=== PATIENT | male | born 1950 | race Hispanic/Latino ===

== ENCOUNTER 2018-05-02 10:56 | Outpatient (CLI) | payer MEDICARE ==
[2018-05-02 11:43] LABS: Blood Urea Nitrogen 13 mg/dL (9-20)
--- NOTE | 2018-05-02 20:33 | Cat Scan Report ---
FINAL REPORT PROCEDURE: CT CHEST W CON TECHNIQUE: Computerized axial tomography of the chest was performed during the IV injection of iodinated nonionic contrast. HISTORY: LUNG CANCER COMPARISON: No prior studies are available for comparison. TECHNICAL QUALITY: Satisfactory. FINDINGS: Heart and pericardium: No pericardial effusion or thickening. Thoracic aorta: Atherosclerotic calcification of the aorta. Pulmonary vasculature: No filling defects are identified. Lymph nodes: 11 millimeter right paratracheal lymph node is present. Lungs: There are postsurgical changes of the right lung. There are emphysematous changes in bilateral lung apices. No infiltrate or focal pulmonary lesion is identified. Airways are patent. Pleural space: No effusion, thickening, or pneumothorax. Musculoskeletal structures: No significant abnormality. Upper abdominal structures: There is a 12 millimeter circumscribed lesion in the right hepatic lobe, which may be a cyst. IMPRESSION: Right lung postsurgical changes and emphysema. No acute pulmonary abnormalities are seen There is a 12 millimeter circumscribed lesion in the right hepatic lobe, which may be a cyst. Follow-up could be obtained to ensure stability
== END 2018-05-02 10:57 | disposition home or self-care (01) ==
LOC: CT 10:56
PROVIDERS: ATTEND Internal Medicine Critical Care Medicine
DX: C34.90 Malignant neoplasm of unspecified part of unspecified bronchus or lung (principal); J43.9 Emphysema, unspecified; Z98.890 Other specified postprocedural states
CPT/HCPCS: 36415; 71260; 82565; 84520; Q9967

== ENCOUNTER 2019-03-31 10:38 | Day surgery (SDC) | payer MEDICARE ==
[2019-03-31] MEDS ORDERED: NACL 0.9% 1000 ML 1,000 ML IV SCH (12:00)
[2019-03-31] MEDS ORDERED: XYLOCAINE MPF 2% ONE (12:30)
--- NOTE | 2019-03-31 12:38 | Anesthesia Day of Surgery ---
Anesthesia Day of Surgery - Day of Surgery Patient Examined: Yes Patient H&P Reviewed: Yes Patient is NPO: Yes
--- NOTE | 2019-03-31 12:38 | Anesthesia Consultation ---
Anesthesia Consult and Med Hx Date of service: 03/31/19 - Airway Anesthetic Teeth Evaluation: Good ROM Head & Neck: Adequate Mental/Hyoid Distance: Adequate Mallampati Class: Class III Intubation Access Assessment: Possibly Difficult - Pulmonary Exam CTA: Yes - Cardiac Exam Cardiac Exam: RRR - Pre-Operative Health Status ASA Pre-Surgery Classification: ASA3 Proposed Anesthetic Plan: MAC - Pulmonary Hx Smoking: Yes Hx Respiratory Symptoms: No Hx Sleep Apnea: Yes - Cardiovascular System Hx Hypertension: Yes (took antihypertensives today) Hx Heart Attack/AMI: No Hx Percutaneous Transluminal Coronary Angioplasty (PTCA): No - Central Nervous System CVA: No - Endocrine Hx Renal Disease: No (hx nephrectomy) Hx Liver Disease: No Hx Non-Insulin Dependent Diabetes: No Hx Thyroid Disease: No - Other Systems Hx Cancer: Yes (hx lung Ca s/p RUL resection) - Additional Comments Anesthesia Medical History Comments: No hx anesthetic complications.
[2019-03-31] MEDS ORDERED: DIPRIVAN 10 MG/ML IV ONE ×2 (12:47)
[2019-03-31] MEDS ORDERED: WATER FOR IRRIG STERILE IR ONE (12:49)
--- NOTE | 2019-03-31 13:20 | Procedure Note ---
Date of procedure: 03/31/19 Pre-op diagnosis: H/O Colon Polyps Post-op diagnosis: other (Multiple,Colon Polyps (Descending Colon and Recto- Sigmoid)/Moderate,Left Colon Diverticular/ Mild to Moderate Internal Hemorrhoid) Procedure: Colonoscopy with Cold Snare Polypectomy and Cold Biopsy [place] [facility] [place]: MARI BECK Estimated blood loss: minimal Pathology: list Specimen disposition: to lab Condition: stable Disposition: same day (Avoid aspirin and NSAID and anticoagulants for 4 days; otherwise resume home medication. Encourage fiber intake and follow up in 1 to 2 weeks ([phone]).)
[2019-03-31 14:10] VITALS: BP 116/87
--- NOTE | 2019-03-31 14:33 | Operative Report ---
PROCEDURE: Colonoscopy. INDICATIONS: This is a 69-year-old white male with a prior history of right lung cancer for which he has had surgery done. Also has a history of colon polyps. Last colonoscopy was done a little over a year ago, 1-1/2 year ago. He has a history of multiple colon polyps. Repeat colonoscopy was done to make sure there was not any recurrence of any polyps. DESCRIPTION OF PROCEDURE: The procedure was done after getting informed consent with MAC anesthesia. Initial rectal exam was unremarkable. Instrument was passed through the rectum onto the cecum, which was identified with ileocecal valve and appendiceal orifice. Visualization was fair. There was a lot of fluid in the colon that was suctioned out. The cecum, ascending colon and most of the transverse colon showed normal mucosa. There were 2 polyps noted in the proximal descending colon, one was removed by snare polypectomy without application of heat and the other by cold biopsy. There was moderate left colon diverticular disease noted and multiple small possibly hyperplastic polyps noted in the rectosigmoid area that were removed by cold biopsy. The rectum showed [id number] internal hemorrhoids on the retroverted view. There was minimal bleeding from the biopsy sites and no complications associated with the procedure. ASSESSMENT: History of colon polyps noted in the descending colon and the rectosigmoid area, left colon diverticular disease, [id number]-yqvqsvbi internal hemorrhoid. The patient had minimal bleeding and will be asked to avoid aspirin and aspirin-related products for the next few days and follow up in the office in 1-2 weeks' time. The patient may resume other medications besides aspirin, aspirin-related and anticoagulants, which should be avoided for the next 4 days. The procedure was done in the GI lab with assistance of the GI lab team, which included URI, Chencho Castaneda and assistance of anesthesia. The patient will also be advised strongly to refrain from smoking. JOB# [id number] JAGDISH/SATHYA
--- NOTE | 2019-03-31 14:44 | History and Physical Report ---
HISTORY OF PRESENT ILLNESS: A 67-year-old white male with a prior history of right lung cancer for which he has had surgery. He also has a prior history of esophageal and gastric ulcers and has had a history of multiple colon polyps of the tubular adenoma type. He has come for a repeat colonoscopy to be done. SOCIAL HISTORY: He does smoke, but states he smokes far less than he had been in the past. On occasion drinks alcohol. No cardiac issues. No flu shots. ALLERGIES: He has no known allergies. PHYSICAL EXAMINATION: GENERAL: He is afebrile. VITAL SIGNS: Blood pressure 131/85, pulse is 63, weight is 216-1/2 pounds. HEENT: Shows no JVD. LUNGS: Clear to auscultation. Lungs do show reduced breath sounds on the right side secondary to prior history of lung surgery. CARDIOVASCULAR: Normal. ABDOMEN: Soft. Bowel sounds present. NEUROLOGIC: He is alert and oriented. ASSESSMENT: History of multiple colon polyps of the tubular adenoma type, history of gastric and esophageal ulcers, prior history of right lung cancer status post-surgery. PLAN: To do a colonoscopy at [facility] on 03/31/2019. The patient received Clenpiq to get his prep that was a sample given from the office. JOB# [id number] JAGDISH/SATHYA
== END 2019-03-31 10:39 | disposition home or self-care (01) ==
LOC: GIO 10:38
DX: Z09 Encounter for follow-up examination after completed treatment for conditions other than malignant neoplasm (principal); D12.7 Benign neoplasm of rectosigmoid junction; D12.4 Benign neoplasm of descending colon; E78.00 Pure hypercholesterolemia, unspecified; I10 Essential (primary) hypertension; G47.30 Sleep apnea, unspecified; Z86.010 Personal history of colon polyps; Z79.899 Other long term (current) drug therapy; Z87.891 Personal history of nicotine dependence; Z85.118 Personal history of other malignant neoplasm of bronchus and lung; Z90.5 Acquired absence of kidney; Z98.890 Other specified postprocedural states
CPT/HCPCS: 45380; 45385; 88305; J2704; J7030

== ENCOUNTER 2020-04-26 08:19 | Day surgery (SDC) | payer MEDICARE ==
[~2020-04-26 08:19] MED LIST: SODIUM CHLORIDE 0.9% 1000 ML 1,000 ML IV SCH
--- NOTE | 2020-04-26 09:40 | Anesthesia Consultation ---
Anesthesia Consult and Med Hx Date of service: 04/26/20 - Airway Anesthetic Teeth Evaluation: Good ROM Head & Neck: Adequate Mental/Hyoid Distance: Adequate Mallampati Class: Class II Intubation Access Assessment: Good - Pulmonary Exam CTA: Yes - Cardiac Exam Cardiac Exam: RRR - Pre-Operative Health Status ASA Pre-Surgery Classification: ASA2 Proposed Anesthetic Plan: MAC - Pulmonary Hx Smoking: Yes Hx Respiratory Symptoms: No COPD: Yes Hx Sleep Apnea: Yes - Cardiovascular System Hx Hypertension: Yes (took antihypertensives today) Hx Heart Attack/AMI: No Hx Percutaneous Transluminal Coronary Angioplasty (PTCA): No - Central Nervous System CVA: No - Endocrine Hx Renal Disease: No (hx nephrectomy) Hx Liver Disease: No Hx Non-Insulin Dependent Diabetes: No Hx Thyroid Disease: No - Other Systems Hx Cancer: Yes (hx lung Ca s/p RUL resection)
--- NOTE | 2020-04-26 09:41 | Anesthesia Day of Surgery ---
Anesthesia Day of Surgery - Day of Surgery Patient Examined: Yes Patient H&P Reviewed: Yes Patient is NPO: Yes Beta Blockers: Yes (yesterday morning)
[2020-04-26] MEDS ORDERED: propofoL 200 MG/20 ML VIAL IV ONE (10:48)
[2020-04-26] MEDS ORDERED: LIDOCAINE MPF (2%) 20 MG/1 ML VIAL 5 ML ONE (10:48)
--- NOTE | 2020-04-26 11:25 | Procedure Note ---
Date of procedure: 04/26/20 Pre-op diagnosis: H/O Colon Polyps/P/H/O Cancer (lung Cancer-Right) Post-op diagnosis: other (Colon Polyps (Descending Colon and Recto-Sigmoid)/ Moderate,Diverticular Disease/ Mild to Moderate Internal Hemorrhoid) Procedure: Colonoscopy with Cold Biopsy and Cold Snare Polypectomy [place] [facility] [place]geon: MARI BECK Estimated blood loss: minimal Pathology: list Specimen disposition: to lab Condition: stable Disposition: same day (Encourage fiber intake. Avoid aspirin and NSAID for 5 days; otherwise resume home medication and follow up in 1 to 2 weeks ([phone]).)
--- NOTE | 2020-04-26 11:27 | Operative Report ---
PROCEDURE: Colonoscopy with biopsy and cold snare polypectomy. INDICATIONS: This is a 70-year-old white male with a prior history of lung cancer, who has prior history of colon polyps. Repeat colonoscopy was done to make sure there was not any recurrence of any polyps. The procedure was done after getting informed consent with MAC anesthesia. Initial rectal exam was done. DESCRIPTION OF PROCEDURE: The procedure was done after getting informed consent with MAC anesthesia. Initial rectal exam was unremarkable. Instrument was passed through the rectum onto the cecum, which was identified with ileocecal valve and the appendiceal orifice. Visualization was fair to good. Mucosa was washed with copious amounts of water. The cecum, ascending colon and transverse colon showed normal mucosa. There was moderate diverticular disease noted in the left colon and in the descending colon, there was a 9-10 mm polyp that was removed by cold snare polypectomy and retrieved. In the rectosigmoid area, there were several small polyps, possibly hyperplastic that were removed by cold biopsy and the rectum showed mild to moderate internal hemorrhoid on the retroverted view. There was minimal bleeding associated with the procedure. No complications associated with the procedure. ASSESSMENT: History of colon polyp, prior history of cancer. The patient had a history of lung cancer, colon polyps involving the descending colon and small rectosigmoid polyps, possibly hyperplastic. Moderate left colon diverticula, mild to moderate internal hemorrhoid. PLAN: To avoid aspirin and aspirin-related products for the next few days. Encouraged the patient to take fiber supplements and otherwise resume previous medication and follow up in the office in 1-2 weeks' time. The procedure was done in the GI lab with assistance of the GI lab team, which included URI, leslie Castaneda and with assistance of anesthesia. JOB# [id number] JAGDISH/SATHYA
--- NOTE | 2020-04-26 13:33 | Post Anesthesia Evaluation ---
- Post Anesthesia Evaluation Patient Participated: Yes Airway Patent: Yes Stable Respiratory Function: Yes Nausea/Vomiting: No Temp > 96.8F: Yes Pain Manageable: Yes Adequeate Hydration: Yes Anesthesia Complications: No Block Receding Appropriately: Not Applicable Patient on Ventilator: No
[2020-04-26 23:54] VITALS: BP 150/88
== END 2020-04-26 08:20 | disposition home or self-care (01) ==
LOC: GIO 08:19
DX: Z12.11 Encounter for screening for malignant neoplasm of colon (principal); K57.30 Diverticulosis of large intestine without perforation or abscess without bleeding; D12.4 Benign neoplasm of descending colon; K62.1 Rectal polyp; K64.8 Other hemorrhoids; E78.00 Pure hypercholesterolemia, unspecified; I10 Essential (primary) hypertension; J44.9 Chronic obstructive pulmonary disease, unspecified; G47.30 Sleep apnea, unspecified; Z79.899 Other long term (current) drug therapy; Z85.118 Personal history of other malignant neoplasm of bronchus and lung; Z86.010 Personal history of colon polyps; Z85.038 Personal history of other malignant neoplasm of large intestine; Z87.891 Personal history of nicotine dependence; Z98.890 Other specified postprocedural states; Z90.5 Acquired absence of kidney
CPT/HCPCS: 45380; 45385; 88305; J2704; J7030

== ENCOUNTER 2021-11-07 07:08 | Day surgery (SDC) | payer MEDICARE ==
[2021-11-07] MEDS ORDERED: SIMETHICONE 40 MG/0.6 ML ORAL DROP 30ML PO ONE (07:28)
[2021-11-07] MEDS ORDERED: WATER FOR IRRIG STERILE 1,000 ML BOTTLE ONE (07:28)
--- NOTE | 2021-11-07 07:56 | Anesthesia Consultation ---
Anesthesia Consult and Med Hx Date of service: 11/07/21 - Airway Anesthetic Teeth Evaluation: Good ROM Head & Neck: Adequate Mental/Hyoid Distance: Adequate Mallampati Class: Class II Intubation Access Assessment: Probably Good - Pulmonary Exam CTA: Yes - Cardiac Exam Cardiac Exam: RRR - Pre-Operative Health Status ASA Pre-Surgery Classification: ASA3 Proposed Anesthetic Plan: MAC - Pulmonary Hx Smoking: Yes (1-2 cigarettes per week) Hx Respiratory Symptoms: No SOB: No COPD: Yes Home Oxygen Therapy: No Hx Sleep Apnea: Yes (+ CPAP) - Cardiovascular System Hx Hypertension: Yes (took antihypertensives today) Hx Heart Attack/AMI: No Hx Percutaneous Transluminal Coronary Angioplasty (PTCA): No Hx Cardia Arrhythmia: Yes (Afib on Eliquis - last dose 1 week ago) - Central Nervous System Hx Seizures: No CVA: No - Gastrointestinal Hx Ulcer: Yes Hx Gastroesophageal Reflux Disease: Yes (well controlled ) - Endocrine Hx Renal Disease: No (L nephrectomy) Hx Liver Disease: No Hx Non-Insulin Dependent Diabetes: No Hx Thyroid Disease: No - Hematic Hx Anemia: No Hx Sickle Cell Disease: No - Other Systems Hx Alcohol Use: No Hx Substance Use: No Hx Cancer: Yes (Lung cancer s/p RUL lobectomy, prostate cancer) Hx Obesity: No - Additional Comments Anesthesia Medical History Comments: No hx of anesthetic complications
--- NOTE | 2021-11-07 07:56 | Anesthesia Day of Surgery ---
Anesthesia Day of Surgery - Day of Surgery Patient Examined: Yes Patient H&P Reviewed: Yes Patient is NPO: Yes Beta Blockers: Yes (pt took carvedilol today)
[2021-11-07] MEDS ORDERED: propofoL 200 MG/20 ML VIAL IV ONE ×2 (08:07→08:46)
[2021-11-07] MEDS ORDERED: LIDOCAINE MPF (2%) 20 MG/1 ML VIAL 5 ML ONE (08:07)
--- NOTE | 2021-11-07 09:13 | Procedure Note ---
Date of procedure: 11/07/21 Pre-op diagnosis: Colon Polyp Screening. P/H/o Colon Polyps/ P/H/O Cancer ( Lung cncer) Post-op diagnosis: other (Cecal Polyp (removed by cold, snare polypectomy)/ Recto-Sigmoid Polyps(removed by cold biopsy)/ Moderate,Deep Left Colon Diverticuli/ Mild to moderate Internal Hemorrhoid) Procedure: Colonoscopy with Cold snare Polypectomy and Cold Biopsy Anesthesia: MAC Surgeon: MARI BECK Estimated blood loss: minimal Pathology: list Specimen disposition: to lab Condition: stable Disposition: same day (Avoid aspirin and NSAID and anticoagulants for 5 days, otherwise resume previous medication. Encourage fiber intake and F/U in 1 to 2 weeks ([phone]). Encourage patient to refrain from smoking.)
--- NOTE | 2021-11-07 09:25 | Operative Report ---
DATE OF SURGERY: 11/07/2021 PROCEDURE: Colonoscopy with cold snare polypectomy and cold biopsy. INDICATIONS: This is a 71-year-old white male with a prior history of lung cancer, status post surgery. Also, history of nephrectomy for renal tumor and prior history of colon polyp. Colonoscopy was done to make sure that there was not any recurrence of any polyps. DESCRIPTION OF PROCEDURE: Procedure was done after getting informed consent with MAC anesthesia. Initial rectal examination was unremarkable. The instrument was passed through the rectum onto the cecum, which was identified with ileocecal valve and appendiceal orifice. Visualization was fair to good. In the cecum, there was a 9-10 mm polyp noted that was removed by cold snare polypectomy. The edges were trimmed with cold biopsy and the polyp was retrieved. The remaining part of the cecum and ascending colon showed normal mucosa as did most of the transverse colon. There were a few scattered diverticula noted in the distal transverse colon and moderately severe diverticular disease, some of which were deep noted in the left colon. In the rectosigmoid area and the rectum, there were multiple small polyps that were removed by cold biopsy with minimal bleeding. The rectum showed [id number] internal hemorrhoid on the retroverted view. ASSESSMENT: Colon polyp screening, prior history of colon polyps, prior history of cancer. There were multiple colon polyps noted, one in the cecum that was removed by cold snare excision and multiple small rectosigmoid polyps that were removed by cold biopsy. There was moderate deep left colon diverticular disease noted and mild to moderate internal hemorrhoids. The patient will be asked to avoid aspirin and aspirin-related products for the next few days. Otherwise, resume previous medication and also to encourage fiber supplements. I advised the patient to refrain from smoking and follow up in the office in 1-2 weeks' time. Procedure was done in the GI lab with assistance of the GI lab team, which included the GI nurse, the boiler service technician and with assistance of anesthesia. TID: [id number] RECEIPT: [id number] JAGDISH/NIKOLAS
--- NOTE | 2021-11-07 11:33 | Post Anesthesia Evaluation ---
- Post Anesthesia Evaluation Patient Participated: Yes Airway Patent: Yes Stable Respiratory Function: Yes Nausea/Vomiting: No Temp > 96.8F: Yes Pain Manageable: Yes Adequeate Hydration: Yes Anesthesia Complications: No
[2021-11-07 12:27] VITALS: BP 151/76
== END 2021-11-07 07:09 | disposition home or self-care (01) ==
LOC: GIO 07:08
DX: Z12.11 Encounter for screening for malignant neoplasm of colon (principal); K64.8 Other hemorrhoids; K63.5 Polyp of colon; K63.89 Other specified diseases of intestine; I42.9 Cardiomyopathy, unspecified; E78.00 Pure hypercholesterolemia, unspecified; I10 Essential (primary) hypertension; J44.9 Chronic obstructive pulmonary disease, unspecified; G47.30 Sleep apnea, unspecified; K21.9 Gastro-esophageal reflux disease without esophagitis; Z79.899 Other long term (current) drug therapy; Z87.891 Personal history of nicotine dependence; Z90.5 Acquired absence of kidney; Z98.890 Other specified postprocedural states; Z85.118 Personal history of other malignant neoplasm of bronchus and lung; Z86.010 Personal history of colon polyps
CPT/HCPCS: 45380; 45385; 88305; J2704; J3490; J7030; J7120; Q0162

== ENCOUNTER 2022-01-01 12:14 | Outpatient (CLI) | payer MEDICARE ==
[2022-01-01 13:30] LABS: Blood Urea Nitrogen 14 mg/dL (9-20)
--- NOTE | 2022-01-01 14:55 | Cat Scan Report ---
CT CHEST, ABDOMEN, AND PELVIS WITH CONTRAST INDICATION / CLINICAL INFORMATION: LUNG AND PROSTATE CANCER 100 ML OMNI 300. TECHNIQUE: Axial CT images were obtained through the chest, abdomen, and pelvis after 100 cc of Omnip aque [address] scans at this location are performed using CT dose reduction for ALARA b y means of automated exposure control. COMPARISON: CT chest with contrast 04/28/2014 FINDINGS: HEART: No significant abnormality. CORONARY ARTERY CALCIFICATION: Severe. THORACIC AORTA: Moderate atherosclerotic calcification without acute abnormality. MEDIASTINUM / JERALD: No significant abnormality. No pathologic adenopathy. PLEURA: No pleural effusion. No pneumothorax. LUNGS: Stable partial right pneumonectomy changes. There are moderate to severe centrilobular emphyse matous changes throughout both lungs. 5 mm well-circumscribed subpleural nodule in the left lower lob e is unchanged. No suspicious or new pulmonary lesion. ADDITIONAL CHEST FINDINGS: None. LIVER: No significant abnormality. Stable 1 cm cyst in the caudate lobe. No suspicious liver mass. GALLBLADDER: Surgically removed. BILE DUCTS: No significant abnormality. PANCREAS: No significant abnormality. SPLEEN: No significant abnormality. ADRENALS: No significant abnormality. RIGHT KIDNEY / URETER: No significant abnormality. LEFT KIDNEY / URETER: Absent. STOMACH and SMALL BOWEL: No significant abnormality. COLON: No significant abnormality. APPENDIX: Not identified. PERITONEUM: No free fluid. No free air. No fluid collection. LYMPH NODES: No significant adenopathy. AORTA / ARTERIES: Moderate atherosclerotic calcification without acute abnormality. IVC / VEINS: No significant abnormality. URINARY BLADDER: No significant abnormality. REPRODUCTIVE ORGANS: Multiple radiotherapy beads are identified in the prostate bed. ADDITIONAL FINDINGS: None. SKELETAL SYSTEM: Osteopenia. Mild degenerative changes throughout the spine. No fracture or suspiciou s bony lesion is detected. IMPRESSION: No evidence for disease recurrence or metastasis. Stable right pneumonectomy changes. Emphysema. Surgical changes as described. Signer Name: Yaakov Ndiaye Jr, MD Signed: 01/01/2022 2:51 PM Workstation Name: [id number]
== END 2022-01-01 12:15 | disposition home or self-care (01) ==
LOC: CT 12:14
PROVIDERS: ATTEND Internal Medicine Hematology & Oncology
DX: C61 Malignant neoplasm of prostate (principal)
CPT/HCPCS: 36415; 71260; 74177; 82565; 84520; Q9967